=== PATIENT | male | born 1970 | race Caucasian/White ===

== ENCOUNTER 2024-02-24 12:32 | Inpatient (IN) ==
--- NOTE | 2024-02-24 12:55 | Emergency Department Note ---
History of Present Illness General Chief complaint: Kidney Stone Stated complaint: KIDNEY STONE WON'T PASS PAIN Time Seen by Provider: 02/24/24 12:39 History of Present Illness This is a 54-year-old male that presents to the emergency department via private vehicle with complaints of "right lower quadrant abdominal pain". The patient notes that he was seen this past Wednesday at [facility] and underwent a CT scan and was diagnosed with a 7 mm distal ureteral stone on the right with mild hydronephrosis. He does have a record with him which confirms this diagnosis. The patient notes that he is scheduled to see urology but that is not until Wednesday. The patient denies any dysuria. He denies any fevers or chills but notes that he has been feeling unwell with headache over the past day. The patient otherwise notes he is healthy. He has had kidney stones previously and notes that he has passed/had 3 kidney stones in the past 3 years. He does not follow with urology. No other surgical history. No known drug allergies. He has been taking the Toradol as prescribed as well as tamsulosin without improvement today. He does note that over the past few days following his initial visit at [facility] pain was better but significantly returned in severity. He did take oxycodone as well with some relief but notes today the pain continues. Home Medications Medication Instructions Recorded Confirmed Type ketorolac 10 mg tablet 10 mg PO Q6H PRN Pain 02/24/24 02/24/24 History tamsulosin 0.4 mg capsule 0.4 mg PO DAILY 02/24/24 02/24/24 History Allergies Allergy/AdvReac Type Severity Reaction Status Date / Time No Known Allergies Allergy Unverified 02/24/24 15:44 Past Med/Surg History Problem List (Updated 02/24/24 @ 18:09 by Lb Rosado PA-C) ROLANDO (acute kidney injury) (Acute) Hydronephrosis, right (Acute) Right distal ureteral calculus (Acute) Social History Smoking Status: Light tobacco smoker Tobacco Type: Smokeless Tobacco (Dip or Chew) Feels Safe at Home: Yes Review of Systems A total of 10 systems reviewed and were otherwise negative Physical Exam Vital Signs Vital Signs - 24 hr 02/24/24 12:33 02/24/24 12:35 02/24/24 12:54 Temperature 36.8 C Temperature Source Temporal Artery Scan Pulse Rate 81 Pulse Rate [Apical] Pulse Rhythm Regular Pulse Strength Normal Respiratory Rate 20 Respiratory Effort / Characteristics Non-Labored Spontaneous Respiratory Depth Normal Respiratory Pattern Blood Pressure [Right Arm] 136/91 Blood Pressure Mean [Right Arm] 106 Pulse Oximetry 98 100 Oxygen Delivery Method Room Air Room Air Sepsis Recent Fever Within 48 Hours No Sepsis New/Unexplained Change in Mental Status N/A Sepsis Action Taken by Nursing No Action Required 02/24/24 15:14 02/24/24 16:03 02/24/24 17:10 Temperature Temperature Source Pulse Rate Pulse Rate [Apical] 77 63 80 Pulse Rhythm Pulse Strength Respiratory Rate 16 16 19 Respiratory Effort / Characteristics Non-Labored Spontaneous Non-Labored Spontaneous Non-Labored Spontaneous Respiratory Depth Normal Normal Normal Respiratory Pattern Regular Blood Pressure [Right Arm] 135/76 139/73 131/76 Blood Pressure Mean [Right Arm] 95 95 94 Pulse Oximetry 97 98 95 Oxygen Delivery Method Room Air Room Air Room Air Sepsis Recent Fever Within 48 Hours Sepsis New/Unexplained Change in Mental Status Sepsis Action Taken by Nursing VITAL SIGNS - Vital signs and nursing notes were reviewed. Stable and afebrile. GENERAL - 54-year-old male appearing his stated age who is in no acute distress but appears to be in pain, mildly diaphoretic. Communicates well with provider and answers questions appropriately. SKIN - Without rashes. HEAD - NC/AT. EYES - PERRL with EOMI bilaterally. Sclera anicteric. NOSE - Midline and without cyanosis. No epistaxis or purulent drainage noted. MOUTH/OROPHARYNX - Without perioral cyanosis. NECK - Neck with FROM. No nuchal rigidity. LUNGS - CTA CARDIAC - RRR ABDOMEN - Abdominal contour normal without pulsations or visible masses. BS normoactive all four quadrants. No tenderness, palpable masses, hepatosplenomegaly, or ascites noted. EXTREMITIES - No clubbing or peripheral cyanosis. +5/5 strength noted in UE/LE bilaterally. NEUROLOGIC - Cranial nerves grossly intact. PSYCH -alert, oriented and pleasant on exam Course Administered Medications Discontinued Medications Hydromorphone HCl (Hydromorphone Inj 0.5 Mg/0.5 Ml Syr) 0.5 mg IV NOW STA Stop: 02/24/24 12:55 Last Admin: 02/24/24 13:12 Dose: 0.5 mg Documented By: MICHELLE Hydromorphone HCl (Hydromorphone Inj 0.5 Mg/0.5 Ml Syr) 0.25 mg IV NOW STA Stop: 02/24/24 15:19 Last Admin: 02/24/24 15:38 Dose: 0.25 mg Documented By: NOBLE Sodium Chloride (Nss) 1,000 mls @ 999 mls/hr IV .Q1H1M RADHA Stop: 02/24/24 14:00 Last Infusion: 02/24/24 14:17 Dose: Infused Documented By: Admin: 02/24/24 13:13 Dose: 999 mls/hr Documented By: MICHELLE Ondansetron HCl (Ondansetron Inj 2 Mg/Ml 2 Ml Vial) 4 mg IV NOW STA Stop: 02/24/24 12:55 Last Admin: 02/24/24 13:12 Dose: 4 mg Documented By: MICHELLE Medical Decision Making Laboratory Data 02/24/24 13:07 02/24/24 13:07 Lab Results 02/24/24 Range/Units 13:07 WBC 8.18 (4.8-10.8) K/ul RBC 4.58 L (4.70-6.10) M/uL Hgb 14.6 (14.0-18.0) g/dl Hct 42.8 (42.0-52.0) % MCV 93.4 (80.0-100.0) fL MCH 31.9 (25.0-34.0) pg MCHC 34.1 (32.0-36.0) g/dL RDW Std Deviation 43.6 (36.4-46.3) fL RDW Coeff of Brent 12.8 (11.5-14.5) % Plt Count 162 (130-400) K/uL MPV 10.8 (9.4-12.4) fL Immature Gran % (Auto) 0.4 % Neut % (Auto) 77.7 % Lymph % (Auto) 12.2 % [place] % (Auto) 8.3 % Eos % (Auto) 1.0 % Baso % (Auto) 0.4 % Neut # (Auto) 6.36 (1.40-6.50) K/uL Lymph # (Auto) 1.00 L (1.20-3.40) K/uL [place] # (Auto) 0.68 H (0.11-0.59) K/uL Eos # (Auto) 0.08 (0.00-0.50) K/uL Baso # (Auto) 0.03 (0.00-0.20) K/uL Immature Gran # (Auto) 0.03 (0.01-0.20) K/uL Sodium 137 (136-145) mmol/L Potassium 4.3 (3.5-5.1) mmol/L Chloride 105 (98-107) mmol/L Carbon Dioxide 27 (21-32) mmol/L Anion Gap 5 (3-11) BUN 20 (6-23) mg/dl Creatinine 1.65 H (0.6-1.4) mg/dl Est Cr Clr Drug Dosing 75.6 ml/min Est GFR ( Amer) 54.5 ml/min Est GFR (Non-Af Amer) 47.0 ml/min BUN/Creatinine Ratio 12.1 (10-20) Glucose 105 H (70-99(Fasting)) mg/dl Calcium 10.0 (8.6-10.3) mg/dl Total Bilirubin 1.0 (0.2-1.0) mg/dl AST 24 (13-39) U/L ALT 32 (7-52) U/L Alkaline Phosphatase 64 (34-104) U/L Total Protein 6.8 (6.0-8.3) gm/dl Albumin 4.0 (3.4-5.0) gm/dl Globulin 2.8 (2.5-4.0) gm/dl Albumin/Globulin Ratio 1.4 (0.9-2) Urine Color Yellow Urine Appearance Turbid A (Clear) Urine pH 8.5 H (4.5-7.5) Ur Specific [place] 1.021 (1.000-1.030) Urine Protein Negative (Negative) Urine Glucose (UA) Negative (Negative) Urine Ketones Trace H (Negative) Urine Blood Negative (Negative) Urine Nitrite Negative (Negative) Urine Bilirubin Negative (Negative) Urine Urobilinogen Negative (Negative) Ur Leukocyte Esterase Negative (Negative) Urine WBC (Auto) 0-5 (0-5) /hpf Urine RBC (Auto) 0-2 (0-2) /hpf U Hyaline Cast (Auto) 0-2 (0-2) /lpf U Epithel Cells (Auto) 0-2 (0-2) /hpf Urine Bacteria (Auto) None Seen (None Seen) Imaging Data Radiologist's Impression: KUB X-Ray 02/24/24 12:56 XR KUB/Abdomen 1 view CLINICAL HISTORY: R flank pain, known 7mm distal ureteral stone TECHNIQUE: 1 view of the abdomen was obtained. Comparison: Comparison is made to renal ultrasound 02/24/2024 FINDINGS: Calcific densities are in the right hemipelvis. The osseous structures are grossly unremarkable. The bowel gas pattern is nonobstructive. A moderate amount of stool is noted within the large bowel. IMPRESSION: Calcific densities in the right hemipelvis may possibly represent ureteral stones. CT abdomen pelvis is a more sensitive modality. ACT 112: Negative or not required by law. Electronically signed by: Flip Vaz M.D. 02/24/2024 2:34 PM Renal Ultrasound 02/24/24 12:56 RENAL ULTRASOUND CLINICAL HISTORY: R flank pain, known 7mm distal ureteral stone COMPARISON STUDY: None available at time of interpretation. TECHNIQUE: Sonography of the kidneys and the urinary bladder was performed. FINDINGS: The right kidney measures 14.7 cm in maximal dimension and the left measures 14.1 cm. There is mild right hydronephrosis. There is no left hydronephrosis. A 5 mm echogenic focus within the lower pole of the right kidney favors a right renal calculus. There are no left renal calculi. The left ureteral jet was visualized. The right ureteral jet was not visualized. No ureteral calculi are identified. IMPRESSION: 1. Mild right hydronephrosis. No ureteral calculus identified although these are often occult by sonography. 2. Right nephrolithiasis. ACT 112: Negative or not required by law. Electronically signed by: Clint Vazquez M.D. 02/24/2024 2:07 PM [facility] Narrative Patient was seen and evaluated as above in room C05. Review was performed of triage nursing notes and vital signs. A thorough history and physical examination was performed. I was able to obtain records from [facility] where the patient was seen in the recent past. I did review the laboratory findings as well as imaging report. A CT scan was performed of the abdomen pelvis without contrast and revealed "7 mm stone distally in the right ureter causing mild right hydronephrosis". A copy of this was placed on the patient's chart here for continuity purposes. Options of care were discussed with the patient. IV access was established. Labs were drawn. A KUB and renal ultrasound were performed. I reviewed the imaging. Mild hydronephrosis on the right noted. KUB revealed some calcifications. Patient was medicated with IV analgesia, IV antiemetics, as well as IV fluids. Labs reveal no leukocytosis or concerning anemia. Mild ROLANDO with creatinine 1.65. Hyperglycemia 105. Urinalysis does not suggest infection. I did discuss this with the urology service that came to evaluate the patient. Plan at this time is medical admission and likely procedure via urology tomorrow. Patient amenable to this plan. Please refer to further documentation regarding his stay. In the evaluation and treatment of this patient the following differential diagnoses were entertained: UTI, pyelonephritis, diverticulitis, kidney stone, among others Impression & Plan Right distal ureteral calculus, Hydronephrosis, right, ROLANDO (acute kidney injury) Discharge Plan Visit Data Chief Complaint: Kidney Stone Stated Complaint: KIDNEY STONE WON'T PASS PAIN ED Provider: Ming Nuno ED Midlevel Provider: Lb Rosado Discharge Problem: Right distal ureteral calculus, Hydronephrosis, right, ROLANDO (acute kidney injury) Patient Disposition: Admitted As Inpatient Condition: Good Forms Stand Alone Forms: [facility], Important Visit Information Prescriptions Prescriptions: No Action ketorolac 10 mg tablet 10 mg PO Q6H PRN (Reason: Pain) tamsulosin 0.4 mg capsule 0.4 mg PO DAILY Referrals Referrals: PCP,NO [Physician] -
[2024-02-24] MEDS: HYDROmorphone INJ 0.5 MG/0.5 ML SYR IV STA ×2 (13:12→15:38)
[2024-02-24] MEDS: ONDANSETRON INJ 2 MG/ML 2 ML VIAL IV STA (13:12)
[2024-02-24] MEDS: SODIUM CHLORIDE 0.9% 1,000 ML IV SCH (13:13)
[2024-02-24 13:23] LABS: Appearance Urine Turbid (Clear); Bacteria Urine Automated None Seen (None Seen); Basophils # (auto) 0.03 K/uL (0.00-0.20); Basophils % (auto) 0.4 %; Bilirubin Urine Negative (Negative); Blood Urine Negative (Negative); Cast Urine Automated 0-2 /lpf (0-2); Color Urine Yellow; Eosinophils # (auto) 0.08 K/uL (0.00-0.50); Epithelial Cell Urine Auto 0-2 /hpf (0-2); Glucose Urine UA Negative (Negative); Hematocrit (blood only) 42.8 % (42.0-52.0); Hemoglobin 14.6 g/dl (14.0-18.0); Immature Granulocytes # (auto) 0.03 K/uL (0.01-0.20); Immature Granulocytes % (auto) 0.4 %; Ketones Urine Trace (Negative); Leukocyte Esterase Urine Negative (Negative); Lymphocytes % (auto) 12.2 %; Mean Corpuscular Hemoglobin 31.9 pg (25.0-34.0); Mean Corpuscular Hgb Conc 34.1 g/dL (32.0-36.0); Mean Corpuscular Volume 93.4 fL (80.0-100.0); Mean Platelet Volume 10.8 fL (9.4-12.4); Monocytes # (auto) 0.68 K/uL (0.11-0.59); Monocytes % (auto) 8.3 %; Neutrophils # (auto) 6.36 K/uL (1.40-6.50); Neutrophils % (auto) 77.7 %; Nitrite Urine Negative (Negative); Platelet Count 162 K/uL (130-400); Protein Urine Negative (Negative); RBC Urine Automated 0-2 /hpf (0-2); RDW Coefficient of Variation 12.8 % (11.5-14.5); RDW Standard Deviation 43.6 fL (36.4-46.3); Red Blood Count 4.58 M/uL (4.70-6.10); Specific Gravity Urine 1.021 (1.000-1.030); Urobilinogen Urine Negative (Negative); WBC Urine Automated 0-5 /hpf (0-5); White Blood Count 8.18 K/ul (4.8-10.8); pH Urine 8.5 (4.5-7.5)
[2024-02-24 13:45] LABS: Albumin Globulin Ratio 1.4 (0.9-2); BUN Creatinine Ratio 12.1 (10-20); Creatinine Clr Calc Pharmacy 75.6 ml/min; Est GFR (African American) 54.5 ml/min; Globulin 2.8 gm/dl (2.5-4.0); Potassium 4.3 mmol/L (3.5-5.1); Total Protein 6.8 gm/dl (6.0-8.3)
--- NOTE | 2024-02-24 14:09 | Ultrasound Report ---
RENAL ULTRASOUND CLINICAL HISTORY: R flank pain, known 7mm distal ureteral stone COMPARISON STUDY: None available at time of interpretation. TECHNIQUE: Sonography of the kidneys and the urinary bladder was performed. FINDINGS: The right kidney measures 14.7 cm in maximal dimension and the left measures 14.1 cm. There is mild right hydronephrosis. There is no left hydronephrosis. A 5 mm echogenic focus within the low er pole of the right kidney favors a right renal calculus. There are no left renal calculi. The left ureteral jet was visualized. The right ureteral jet was not visualized. No ureteral calculi are ident ified. IMPRESSION: 1. Mild right hydronephrosis. No ureteral calculus identified although these are often occult by sono graphy. 2. Right nephrolithiasis. ACT 112: Negative or not required by law. Electronically signed by: Clint Vazquez M.D. 02/24/2024 2:07 PM
--- NOTE | 2024-02-24 14:36 | XRay Report ---
XR KUB/Abdomen 1 view CLINICAL HISTORY: R flank pain, known 7mm distal ureteral stone TECHNIQUE: 1 view of the abdomen was obtained. Comparison: Comparison is made to renal ultrasound 02/24/2024 FINDINGS: Calcific densities are in the right hemipelvis. The osseous structures are grossly unremarkable. The bowel gas pattern is nonobstructive. A moderate amount of stool is noted within the large bowel. IMPRESSION: Calcific densities in the right hemipelvis may possibly represent ureteral stones. CT abdomen pelvis is a more sensitive modality. ACT 112: Negative or not required by law. Electronically signed by: Flip Vaz M.D. 02/24/2024 2:34 PM
--- NOTE | 2024-02-24 15:20 | Urology Consultation ---
Date of Consultation February 24, 2024 Assessment & Plan (1) Right distal ureteral calculus: (2) Hydronephrosis, right: 54-year-old male recently diagnosed with an obstructing 7 mm right distal ureteral calculus at [facility] ED who presented to the emergency department today due to worsening right abdominal pain. He is currently afebrile, hemodynamically stable Labs reviewedcreatinine 1.65, no leukocytosis Urinalysis was not suspicious for infection KUB shows a right distal ureteral stone Renal ultrasound shows mild right hydronephrosis ED provider is requesting CT images to be pushed from [facility] Patient will be admitted to the hospital medicine service for pain management No acute surgical intervention planned today We discussed options for stone management including trial of passage versus ureteroscopy, laser lithotripsy and stent placement Will make him NPO at midnight for possible surgical intervention tomorrow Recommend continue Tamsulosin, prn anti-emetics, and pain control Strain all urine will follow, please contact our service with any additional questions or concerns History of Present Illness History of Present Illness This is a 54-year-old male with past medical history of nephrolithiasis who was recently evaluated at [facility] ED on 02/19 for right abdominal and flank pain. He underwent CT imaging and was diagnosed with a 7 mm distal right ureteral calculus with mild hydronephrosis. He was discharged from ED with pain medication and Tamsulosin. He was doing relatively well until today when pain worsened prompting him to come to [facility] ED. He is pending urology follow-up. On arrival to ED, he was afebrile and hemodynamically stable. Lab work notable for creatinine of 1.65, no leukocytosis (8.18), Hgb 14.6. Urinalysis showed trace ketones, otherwise unremarkable. KUB showed a right distal ureteral stone measuring approximately 7 mm. Renal ultrasound showed mild right hydronephrosis, no ureteral stone visualized by sonography; right nephrolithiasis. Patient seen and examined in the emergency department. Family at bedside. He reports ongoing right abdominal pain. Reports intermittent nausea. He is voiding spontaneously without difficulty. Notes slower stream a few days ago, but has been better for the past 2 days. No dysuria. He has noted occasional hematuria since passing stone. Denies fever or chills. He has been drinking fluids throughout the day today. Reports prior history of kidney stones with suspected spontaneous passage. No prior surgical intervention for stones. No family history of stones. Allergies Allergy/AdvReac Type Severity Reaction Status Date / Time No Known Allergies Allergy Unverified 02/24/24 15:44 Home Medications Medication Instructions Recorded Confirmed Type ketorolac 10 mg tablet 10 mg PO Q6H PRN Pain 02/24/24 02/24/24 History tamsulosin 0.4 mg capsule 0.4 mg PO DAILY 02/24/24 02/24/24 History Patient History Social History Smoking Status: Light tobacco smoker Tobacco Type: Smokeless Tobacco (Dip or Chew) Feels Safe at Home: Yes Review of Systems Review of Systems: All systems reviewed & are unremarkable except as noted in HPI & below Physical Exam Constitutional: well developed and well nourished; no acute distress Respiratory: normal respiratory effort; no respiratory distress and no labored breathing Gastrointestinal (Abdomen): Inspection/Auscultation: abdomen normal to inspection Musculoskeletal: Head/Neck/Chest: normocephalic Neurologic: moves all extremities and awake Psychiatric: Orientation: alert and oriented x 3 Genitourinary: no CVA tenderness Results & Data Vital Signs (Past 12 Hours) Vital Signs Temp Pulse Resp BP Pulse Ox O2 Del Method 02/24/24 12:54 100 Room Air 02/24/24 12:35 36.8 C 81 20 98 Room Air 02/24/24 12:33 136/91 PG Care Time/CCT Total # of Minutes Spent Total Time Spent with Patient: Total time spent is greater than 50% in coordination of care (as documented) at patient's floor/unit and/or counseling patient: Coding Level of Care Code 52950 IN/OBS CONSULT LVL 4,60M Diagnoses Right distal ureteral calculus N20.1 Hydronephrosis, right N13.30
--- NOTE | 2024-02-24 15:51 | History & Physical Report ---
Date of Service February 24, 2024 History of Present Illness Chief Complaint: Kidney stone Primary Care Provider: Belkis Dowell PA-C Andrew is a 54-year-old male with unknown PMH. He presented on 02/23 with a repo rted 7 mm kidney stone and intractable pain, nausea, and vomiting. He was seen on Monday 02/19 and was given medications, but pain has since worsened. ED course: ROS: Patient endorses Patient denies Allergies Allergy/AdvReac Type Severity Reaction Status Date / Time No Known Allergies Allergy Unverified 02/24/24 15:44 Home Medications Medication Instructions Recorded Confirmed Type ketorolac 10 mg tablet 10 mg PO Q6H PRN Pain 02/24/24 02/24/24 History tamsulosin 0.4 mg capsule 0.4 mg PO DAILY 02/24/24 02/24/24 History Past Med/Surg History Problem List Hydronephrosis, right Right distal ureteral calculus Social History Smoking Status: Light tobacco smoker Tobacco Type: Smokeless Tobacco (Dip or Chew) Feels Safe at Home: Yes Review of Systems Review of Systems: See HPI above Physical Exam Physical Exam: General: no acute distress; non-toxic appearing; well-nourished; cooperative HEENT: normocephalic, atraumatic; no scleral icterus; PERRLA w/ EOMs intact; moist mucus membrane; vision and hearing grossly intact Neck: supple; no lymphadenopathy; trachea midline Skin: warm, dry without signs of tenting; no cyanosis; no rashes, bruising, lesions, or erythema noted CV: chest wall NTP; RRR; S1/S2 normal; no murmurs/rubs/gallops; pulses intact and symmetric at radial, DP, and PT Lungs: no acute respiratory distress; symmetrical chest wall expansion; clear breath sounds across all lung [place] w/o adventitious sounds; no wheezing ABD: Soft, NTP; BS present; no rebound/guarding; no distention MSK: no tics or fasciculations; no edema noted in the LEs b/l, nonerythematous Neuro: A&Ox3; normal mood and affect; fluent speech; no focal deficits; sensation grossly intact in the LEs b/l Results & Data Results & Data Vital Signs (Past 12 Hours) Vital Signs Temp Pulse Pulse Resp BP Pulse Ox O2 Del Method 02/24/24 15:14 77 16 135/76 97 Room Air 02/24/24 12:54 100 Room Air 02/24/24 12:35 36.8 C 81 20 98 Room Air 02/24/24 12:33 136/91 Laboratory Results Abnormal lab results 02/24/24 Range/Units 13:07 RBC 4.58 L (4.70-6.10) M/uL Lymph # (Auto) 1.00 L (1.20-3.40) K/uL [place] # (Auto) 0.68 H (0.11-0.59) K/uL Creatinine 1.65 H (0.6-1.4) mg/dl Glucose 105 H (70-99(Fasting)) mg/dl Urine Appearance Turbid A (Clear) Urine pH 8.5 H (4.5-7.5) Urine Ketones Trace H (Negative) Diagnostic Findings KUB X-Ray 02/24/24 12:56 XR KUB/Abdomen 1 view CLINICAL HISTORY: R flank pain, known 7mm distal ureteral stone TECHNIQUE: 1 view of the abdomen was obtained. Comparison: Comparison is made to renal ultrasound 02/24/2024 FINDINGS: Calcific densities are in the right hemipelvis. The osseous structures are grossly unremarkable. The bowel gas pattern is nonobstructive. A moderate amount of stool is noted within the large bowel. IMPRESSION: Calcific densities in the right hemipelvis may possibly represent ureteral stones. CT abdomen pelvis is a more sensitive modality. ACT 112: Negative or not required by law. Electronically signed by: Flip Vaz M.D. 02/24/2024 2:34 PM Renal Ultrasound 02/24/24 12:56 RENAL ULTRASOUND CLINICAL HISTORY: R flank pain, known 7mm distal ureteral stone COMPARISON STUDY: None available at time of interpretation. TECHNIQUE: Sonography of the kidneys and the urinary bladder was performed. FINDINGS: The right kidney measures 14.7 cm in maximal dimension and the left measures 14.1 cm. There is mild right hydronephrosis. There is no left hydronephrosis. A 5 mm echogenic focus within the lower pole of the right kidney favors a right renal calculus. There are no left renal calculi. The left ureteral jet was visualized. The right ureteral jet was not visualized. No ureteral calculi are identified. IMPRESSION: 1. Mild right hydronephrosis. No ureteral calculus identified although these are often occult by sonography. 2. Right nephrolithiasis. ACT 112: Negative or not required by law. Electronically signed by: Clint Vazquez M.D. 02/24/2024 2:07 PM ECG Additional Comments: ECG revealed Code Status & VTE Plan VTE Prophylaxis Plan VTE Prophylaxis will be ordered: Yes PG Care Time/CCT Total # of Minutes Spent Total Time Spent with Patient: Total time spent is greater than 50% in coordination of care (as documented) at patient's floor/unit and/or counseling patient: Coding
--- NOTE | 2024-02-24 17:09 | History & Physical Report ---
Date of Service February 24, 2024 Assessment & Plan (1) Hydronephrosis, right: Plan: Obstructing right distal ureteral calculus, hydronephrosis with associated ROLANDO No baseline creatinine available, reportedly normal Creatinine 1.65 on admission. No associated volume overload or hyperkalemia Renal ultrasound shows mild right hydroureteronephrosis, patient with known 7 m distal radial calculus previously demonstrated [facility] ER this week Urology consulted. Anticipate operative intervention 02/24 N.p.o. at midnight Continue Tylenol, Flomax, tamsulosin. Toradol deferred due to ROLANDO No signs of UTI/infection at time of admission. UA is with ketones with poor p.o. intake, otherwise bland (2) ROLANDO (acute kidney injury): Plan: Creatinine 1.65 on admission. No associated volume overload or hyperkalemia Normal creatinine reportedly normal, not available on file for review IV FM as noted Trend daily Trickle treatment of obstructive ROLANDO anticipated 02/24 Plan DVT prophylaxis: Low risk, SCDs Diet: Regular until midnight, n.p.o. after midnight Disposition: Medical surgical CODE STATUS: Full code History of Present Illness Primary Care Provider: Belkis Dowell PA-C Andrew is a 54-year-old male with no prior past medical history who presents for right distal ureteral calculus with associated hydronephrosis. Was seen at [facility] previously and discharged, presented back to the ER [place] due to persistent pain. Creatinine elevated, no leukocytosis, no associated UTI on ER assessment. Urology was consulted, patient anticipated for surgical intervention 02/24. Denies past medical history of problems other than kidney stones and well-controlled anxiety not currently on medications. Urology was consulted for management and admission, recommended for operative intervention 02/24 with medical admission overnight. Seen at the bedside. Reports that he has had pain for about a week, was seen at OSH on Wednesday and was told he is a 7 mm stone. Was discharged home on Flomax but pain is continued to worsen, presented to the ER for continued pain. No fever, chills, sweats. No pain when peeing. Pain is mostly in his abdomen and flank on the right side. This is intermittent in waves, up to an 8/10 with spasm and then "okay "at rest. Pain adequately controlled at time of hospitalist assessment. Endorses a history of anxiety for which he was previously on medications but currently does well without these and has been on no medications in the previous 6 weeks. No SI/HI. Denies any other prescription medications. Denies any other history of medical problems. Denies chest pain/chest pressure, denies anginal symptoms and is generally active walking around. No history of DM/insulin use. No history of strokes. Uses chew tobacco 1 can last a few days. No regular alcohol use. Some medical marijuana use for anxiety intermittently, none recently. Full code. No medication allergies. Allergies Allergy/AdvReac Type Severity Reaction Status Date / Time No Known Allergies Allergy Unverified 02/24/24 15:44 Home Medications Medication Instructions Recorded Confirmed Type ketorolac 10 mg tablet 10 mg PO Q6H PRN Pain 02/24/24 02/24/24 History tamsulosin 0.4 mg capsule 0.4 mg PO DAILY 02/24/24 02/24/24 History Past Med/Surg History Problem List (Updated 02/24/24 @ 17:05 by Pablo Singh MD) ROLANDO (acute kidney injury) Hydronephrosis, right Right distal ureteral calculus Social History Smoking Status: Light tobacco smoker Tobacco Type: Smokeless Tobacco (Dip or Chew) Feels Safe at Home: Yes Physical Exam Physical Exam: General: A&Ox3. NAD. Cooperative. HEENT: Atraumatic, normocephalic. Vision and hearing grossly intact Pulm: CTAB A&P. -wheezes, -rales, -rhonchi. Symmetrical chest rise. No increased work of breathing. No respiratory distress. Cardiac: RRR, -mrg. Radial pulses intact and symmetrical. Abdominal: Mild right-sided tenderness on admission, pain greatly improved from prior. No rebound/guarding. Abdomen is nonacute Extremities: Warm and dry Results & Data Results & Data Vital Signs (Past 12 Hours) Vital Signs Temp Pulse Pulse Resp BP Pulse Ox O2 Del Method 02/24/24 16:03 63 16 139/73 98 Room Air 02/24/24 15:14 77 16 135/76 97 Room Air 02/24/24 12:54 100 Room Air 02/24/24 12:35 36.8 C 81 20 98 Room Air 02/24/24 12:33 136/91 PG Care Time/CCT Total # of Minutes Spent Total Time Spent with Patient: Total time spent is greater than 50% in coordination of care (as documented) at patient's floor/unit and/or counseling patient: Coding Level of Care Code 22944 INT INP/OBS CARE 2/55MIN Diagnoses Hydronephrosis, right N13.30 ROLANDO (acute kidney injury) N17.9
[2024-02-24] MEDS: HYDROmorphone INJ 0.5 MG/0.5 ML SYR ONE (18:44)
[2024-02-24] MEDS: HYDROmorphone INJ 0.5 MG/0.5 ML SYR IV PRN (21:44)
[2024-02-24] MEDS: LACTATED RINGER'S 1,000 ML IV SCH (23:24)
[2024-02-25] MEDS: TAMSULOSIN HCL 0.4 MG CAP PO SCH (14:54)
[2024-02-25] MEDS: HYDROmorphone INJ 0.5 MG/0.5 ML SYR IV PRN (15:35)
--- NOTE | 2024-02-25 15:38 | Hospitalist Progress Note ---
Date of Service February 25, 2024 Assessment & Plan (1) Hydronephrosis, right: Plan: Obstructing right distal ureteral calculus, hydronephrosis with associated ROLANDO - UA without signs of infection No baseline creatinine available, reportedly normal Renal ultrasound shows mild right hydroureteronephrosis, patient with known 7 m distal radial calculus previously demonstrated [facility] ER this week Urology consulted. - unable to have intervention 02/24 d/t downtime - patient has started passing sediment - check KUB, will keep NPO at midnight for possible intervention - Continue flomax Pain control: dilaudid and tylenol (2) ROLANDO (acute kidney injury): Plan: Creatinine 1.65 on admission. No baseline to review. No associated volume overload or hyperkalemia Creatinine now 1.33 ROLANDO resolved Plan DVT prophylaxis: Low risk, SCDs Dispo: continued inpatient stay, NPO at midnight for possible intervention discussed case with Dr. Stoddard, urology Admission and Anticipated Discharge Date Admission Date: February 24, 2024 Supervising Physician Co-Signing Physician Notes Attending Attestation - Chart reviewed, care plan d/w BARTOLO Varma. I agree w/ the naylor components of her documentation. Appreciate urology input/assistance. Gabo Ramirez MD Subjective Patient seen this morning during the [facility] downtime. Aware he could not have his procedure today because of this. Will keep for pain control and hopeful procedure tomorrow Pain at this time is mainly right abdominal, denies back pain. Review of Systems Review of Systems: All systems reviewed & are unremarkable except as noted in Subjective Physical Exam Physical Exam: General: NAD, VS as above Resp: normal respiratory effort, lungs clear to auscultation CV: RRR, no murmur, Abd: normal bowel sounds, tenderness to RLQ Back: negative CVA tenderness Extremities: Moves all extremities, no edema Neuro: A&O x3, Skin: intact, no lesions noted Results & Data Results & Data Vital Signs (Past 12 Hours) CBC and chemistry reviewed PG Care Time/CCT Total # of Minutes Spent Total Time Spent with Patient: Total time spent is greater than 50% in coordination of care (as documented) at patient's floor/unit and/or counseling patient: Coding Level of Care Code 57171 SUB INP/OBS CARE 3/50MIN Diagnoses Hydronephrosis, right N13.30 ROLANDO (acute kidney injury) N17.9
--- NOTE | 2024-02-25 16:45 | XRay Report ---
XR KUB/Abdomen 1 view CLINICAL HISTORY: Stone TECHNIQUE: 1 view of the abdomen was obtained. Comparison: Comparison is made to abdomen radiographs 02/24/2024 FINDINGS: Right ureteral stone is seen. The osseous structures are grossly unremarkable. The bowel gas pattern is nonobstructive. A moderate amount of stool is noted within the large bowel. IMPRESSION: Right ureteral stone is unchanged from prior exam. ACT 112: Negative or not required by law. Electronically signed by: Flip Vaz M.D. 02/25/2024 4:42 PM
[2024-02-25 17:02] LABS: BUN Creatinine Ratio 13.5 (10-20); Creatinine Clr Calc Pharmacy 90.9 ml/min; Est GFR (African American) 70.7 ml/min; Potassium 4.5 mmol/L (3.5-5.1)
[2024-02-25] MEDS: POLYETHYLENE (MIRALAX) 17 GM PACK PO PRN (17:52)
[2024-02-25] MEDS: oxyCODONE HCL IR 5 MG TAB (IMMEDIATE RELEASE) PO PRN (19:36)
[2024-02-25 20:20] LABS: Basophils # (auto) 0.02 K/uL (0.00-0.20); Basophils % (auto) 0.4 %; Eosinophils # (auto) 0.13 K/uL (0.00-0.50); Eosinophils % (auto) 2.3 %; Hematocrit (blood only) 42.1 % (42.0-52.0); Hemoglobin 14.1 g/dl (14.0-18.0); Immature Granulocytes # (auto) 0.04 K/uL (0.01-0.20); Immature Granulocytes % (auto) 0.7 %; Lymphocytes # (auto) 1.15 K/uL (1.20-3.40); Lymphocytes % (auto) 20.8 %; Mean Corpuscular Hemoglobin 31.6 pg (25.0-34.0); Mean Corpuscular Hgb Conc 33.5 g/dL (32.0-36.0); Mean Corpuscular Volume 94.4 fL (80.0-100.0); Mean Platelet Volume 10.5 fL (9.4-12.4); Monocytes # (auto) 0.57 K/uL (0.11-0.59); Monocytes % (auto) 10.3 %; Neutrophils # (auto) 3.63 K/uL (1.40-6.50); Neutrophils % (auto) 65.5 %; Platelet Count 134 K/uL (130-400); RDW Coefficient of Variation 12.9 % (11.5-14.5); RDW Standard Deviation 44.7 fL (36.4-46.3); Red Blood Count 4.46 M/uL (4.70-6.10); White Blood Count 5.54 K/ul (4.8-10.8)
[2024-02-26] MEDS: HYDROCORTISONE 1% CRM 30 GM TUBE EXT PRN (01:43)
--- NOTE | 2024-02-26 06:48 | Urology Progress Note ---
Date of Service February 26, 2024 Assessment & Plan (1) Right distal ureteral calculus: Plan Patient with obstructing stone of the right UVJ. Stone did not appear to move on KUB imaging yesterday. Patient elected to monitor further. Was passing a small amount of debris but does not appear to have passed a stone. Patient's vitals are all stable. Oxygen saturation 96% on room air. Labs from today are pending. Creatinine from yesterday was 1.33. White count 5.54. Patient independently assessed, examined, interviewed, and evaluated. Agree with note as above. Patient's vitals and labs were all reviewed. Pertinent values in the HPI and plan section. Imaging was reviewed interpreted by myself. Agree with read. Vitals were reviewed. Discussed findings extensively with patient and family. Reviewed with consulting physicians/team. Patient's complicated medical and surgical history was reviewed and summarized above. Patient's surgical, medical, social, and family history were all reviewed with pertinent values as above. Discussed patient's current diagnosis as well as concerns and issues. Reviewed different options moving forward. Discussed potential risks and benefits as well as possible options and concerns. Reviewed potential surgical options and interventions. Discussed potential issues and concerns related to intervention. Risk and benefits were discussed extensively with patient and any available family. Discussed potential risks related to anesthesia. Discussed risks of bleeding infection and injury. Patient with obstructing stone of the right UVJ. KUB imaging from yesterday did not show considerable movement. Continue to has episodes of pain and discomfort. Risks and benefits discussed at length for procedure. These include bleeding, infection, injury to surrounding tissues or organs, and risks associated with anesthesia. Patient states understanding and agrees to proceed. Will sign consent and schedule. Plan for cystoscopy with possible right ureteroscopy and stone treatment Admission and Anticipated Discharge Date Admission Date: February 24, 2024 Subjective Patient admitted with stone and discomfort. Patient is afebrile. Has been undergoing maximum expulsion therapy with medications, IV medications, IV fluids, and oral intake. Patient has not had severe episodes of pain. Did pass some small amounts of debris but did not appear to pass stone. Had undergone KUB yesterday which did not show any considerable movement of the stone in the location of the UPJ. Has not developed severe vomiting or other issues. Has not experienced fever or chills. Is tolerating fluids. Has noticed some frequency and urgency. Has not had severe pain in the back and flank. Does have occasional burning and irritation. No severe episodes or major changes. Patient does not believe the passed a stone. Has not passed a large amount of blood or debris that may be the stone. Review of Systems Review of Systems: All systems reviewed & are unremarkable except as noted in HPI & below Physical Exam Physical Exam: General: Alert in no acute distress. HEENT: Normocephalic Atraumatic. Inspection normal. Cranial Nerves 2-12 Grossly intact. Normal inspection of face. Normal inspection of neck. Psychologic: Normal affect. Respiratory: Nonlabored. No use of accessory muscles. No tachypnea or dyspnea. Cardiovascular: No tachycardia Skin: [place] and Dry. No rashes or visible lesions. Extremities/Lymphatics: No edema Abdomen: Soft Non-distended. No rebound or guarding. Results & Data Vital Signs (Past 12 Hours) Vital Signs Temp Pulse Resp BP Pulse Ox O2 Del Method 02/25/24 19:50 36.5 C 84 18 134/93 96 Room Air PG Care Time/CCT Total # of Minutes Spent Total Time Spent with Patient: Total time spent is greater than 50% in coordination of care (as documented) at patient's floor/unit and/or counseling patient: Coding Level of Care Code 85393 SUB INP/OBS CARE 3/50MIN Diagnoses Right distal ureteral calculus N20.1
--- NOTE | 2024-02-26 06:57 | Anesthesiology Consultation ---
Date of Service February 26, 2024 History Surgery Operation Date: 02/26/24 08:20 Proposed Procedures p Cystoscopy, Right Stent Placement - Jeffery Stoddard, Height/Weight Height: 6 ft 2 in Weight: 124.058 kg Allergies Allergy/AdvReac Type Severity Reaction Status Date / Time No Known Allergies Allergy Unverified 02/24/24 15:44 Medications Home Medications Medication Instructions Recorded Confirmed Last Taken ketorolac 10 mg tablet 10 mg PO Q6H PRN Pain 02/24/24 02/24/24 02/24/24 08:00 tamsulosin 0.4 mg capsule 0.4 mg PO DAILY 02/24/24 02/24/24 02/24/24 08:00 Active Medications Generic Name Dose Route Start Last Admin Trade Name Freq PRN Reason Stop Dose Admin Hydrocortisone 1 appln 02/26/24 00:50 02/26/24 01:43 Hydrocortisone 1% Crm 30 Gm Tube EXT 03/27/24 00:49 1 appln Q24H PRN Administration Itching Hydromorphone HCl 0.5 mg 02/25/24 14:45 02/26/24 03:24 Hydromorphone Inj 0.5 Mg/0.5 Ml Syr IV 03/10/24 14:44 0.5 mg Q4H PRN Administration Pain Oxycodone HCl 5 mg 02/25/24 17:46 02/26/24 01:44 Oxycodone Hcl Ir 5 Mg Tab (Immediate Release) PO 03/10/24 17:45 5 mg Q6H PRN Administration Pain Polyethylene Glycol 17 gm 02/25/24 16:06 02/25/24 17:52 Polyethylene (Miralax) 17 Gm Pack PO 03/26/24 16:05 17 gm DAILY PRN Administration Constipation Tamsulosin HCl 0.4 mg 02/25/24 09:00 02/25/24 14:54 Tamsulosin Hcl 0.4 Mg Cap PO 03/26/24 08:59 Not Given DAILY RADHA NPO Date Last Intake of Fluids: 02/26/24 Time Last Intake of Fluids: 00:00 Date Last Intake of Solids: 02/26/24 Time Last Intake of Solids: 00:00 Past Medical History Medical History (Updated 02/26/24 @ 06:57 by Porfirio Barger MD) Hydronephrosis, right Social History Smoking Status: Light tobacco smoker Do You Dip or Chew Tobacco: Yes Hx Alcohol Use: No Physical Exam Vital Signs Last Vital Signs Temp 36.5 C 02/25/24 19:50 Pulse 84 02/25/24 19:50 Resp 18 02/25/24 19:50 BP 134/93 02/25/24 19:50 Pulse Ox 96 02/25/24 19:50 O2 Del Method Room Air 02/25/24 19:50 Testing Laboratory Results 02/25/24 Unknown 02/25/24 08:20 Urine Color Yellow 02/24/24 13:07 Urine Appearance Turbid (Clear) A 02/24/24 13:07 Urine pH 8.5 (4.5-7.5) H 02/24/24 13:07 Ur Specific [place] 1.021 (1.000-1.030) 02/24/24 13:07 Urine Protein Negative (Negative) 02/24/24 13:07 Urine Glucose (UA) Negative (Negative) 02/24/24 13:07 Urine Ketones Trace (Negative) H 02/24/24 13:07 Urine Nitrite Negative (Negative) 02/24/24 13:07 Ur Leukocyte Esterase Negative (Negative) 02/24/24 13:07 Urine WBC (Auto) 0-5 /hpf (0-5) 02/24/24 13:07 Urine RBC (Auto) 0-2 /hpf (0-2) 02/24/24 13:07 U Hyaline Cast (Auto) 0-2 /lpf (0-2) 02/24/24 13:07 U Epithel Cells (Auto) 0-2 /hpf (0-2) 02/24/24 13:07 Urine Bacteria (Auto) None Seen (None Seen) 02/24/24 13:07
[2024-02-26 07:53] LABS: BUN Creatinine Ratio 14.2 (10-20); Calcium 9.4 mg/dl (8.6-10.3); Creatinine Clr Calc Pharmacy 114.1 ml/min; Est GFR (African American) 93.1 ml/min; Est GFR (Non-African American) 80.3 ml/min; Potassium 4.1 mmol/L (3.5-5.1)
[2024-02-26] MEDS ORDERED: fentaNYL citrate PF 100 MCG/2 ML VIAL ONE (07:59)
[2024-02-26] MEDS ORDERED: MIDAZOLAM HCL 1 MG/ML 2ML VIAL ONE (07:59)
[2024-02-26] MEDS ORDERED: LIDOCAINE 2% 2 ML VIAL/AMP(20MG/ML) INFIL ONE (07:59)
[2024-02-26] MEDS ORDERED: ONDANSETRON INJ 2 MG/ML 2 ML VIAL ONE (07:59)
[2024-02-26] MEDS ORDERED: PROPOFOL IV EMULSION 10 MG/ML 20 ML VIAL IV ONE (07:59)
--- NOTE | 2024-02-26 08:27 | Anesthesiology Consultation ---
Date of Service February 26, 2024 Assessment & Plan (1) Encounter for pre-operative examination: Chart Review Chart Review: Acceptable Risk for Surgery History Surgery Operation Date: 02/26/24 08:20 Proposed Procedures p Cystoscopy, Right Stent Placement - Jeffery Stoddard DO Height/Weight Height: 6 ft 2 in Weight: 124.058 kg Allergies Allergy/AdvReac Type Severity Reaction Status Date / Time No Known Allergies Allergy Unverified 02/24/24 15:44 Medications Home Medications Medication Instructions Recorded Confirmed Last Taken ketorolac 10 mg tablet 10 mg PO Q6H PRN Pain 02/24/24 02/24/24 02/24/24 08:00 tamsulosin 0.4 mg capsule 0.4 mg PO DAILY 02/24/24 02/24/24 02/24/24 08:00 Active Medications Generic Name Dose Route Start Last Admin Trade Name Freq PRN Reason Stop Dose Admin Hydrocortisone 1 appln 02/26/24 00:50 02/26/24 01:43 Hydrocortisone 1% Crm 30 Gm Tube EXT 03/27/24 00:49 1 appln Q24H PRN Administration Itching Hydromorphone HCl 0.5 mg 02/25/24 14:45 02/26/24 03:24 Hydromorphone Inj 0.5 Mg/0.5 Ml Syr IV 03/10/24 14:44 0.5 mg Q4H PRN Administration Pain Oxycodone HCl 5 mg 02/25/24 17:46 02/26/24 01:44 Oxycodone Hcl Ir 5 Mg Tab (Immediate Release) PO 03/10/24 17:45 5 mg Q6H PRN Administration Pain Polyethylene Glycol 17 gm 02/25/24 16:06 02/25/24 17:52 Polyethylene (Miralax) 17 Gm Pack PO 03/26/24 16:05 17 gm DAILY PRN Administration Constipation Tamsulosin HCl 0.4 mg 02/25/24 09:00 02/26/24 07:58 Tamsulosin Hcl 0.4 Mg Cap PO 03/26/24 08:59 0.4 mg DAILY RADHA Administration NPO Date Last Intake of Fluids: 02/26/24 Time Last Intake of Fluids: 00:00 Date Last Intake of Solids: 02/26/24 Time Last Intake of Solids: 00:00 Past Medical History Medical History (Updated 02/26/24 @ 08:27 by Porfirio Barger MD) ROLANDO (acute kidney injury) Hydronephrosis, right Past Surgical History Surgical History (Updated 02/26/24 @ 08:27 by Porfirio Barger MD) Hx of colonoscopy No pertinent past surgical history Social History Smoking Status: Light tobacco smoker Do You Dip or Chew Tobacco: Yes Hx Alcohol Use: No Physical Exam Vital Signs Last Vital Signs Temp 36.6 C 02/26/24 07:12 Pulse 51 L 02/26/24 07:12 Resp 16 02/26/24 07:12 BP 105/70 02/26/24 07:12 Pulse Ox 92 02/26/24 07:12 O2 Del Method Room Air 02/26/24 07:12 Testing Laboratory Results 02/25/24 Unknown Urine Color Yellow 02/24/24 13:07 Urine Appearance Turbid (Clear) A 02/24/24 13:07 Urine pH 8.5 (4.5-7.5) H 02/24/24 13:07 Ur Specific [place] 1.021 (1.000-1.030) 02/24/24 13:07 Urine Protein Negative (Negative) 02/24/24 13:07 Urine Glucose (UA) Negative (Negative) 02/24/24 13:07 Urine Ketones Trace (Negative) H 02/24/24 13:07 Urine Nitrite Negative (Negative) 02/24/24 13:07 Ur Leukocyte Esterase Negative (Negative) 02/24/24 13:07 Urine WBC (Auto) 0-5 /hpf (0-5) 02/24/24 13:07 Urine RBC (Auto) 0-2 /hpf (0-2) 02/24/24 13:07 U Hyaline Cast (Auto) 0-2 /lpf (0-2) 02/24/24 13:07 U Epithel Cells (Auto) 0-2 /hpf (0-2) 02/24/24 13:07 Urine Bacteria (Auto) None Seen (None Seen) 02/24/24 13:07
[2024-02-26] MEDS ORDERED: fentaNYL citrate PF 100 MCG/2 ML VIAL IV PRN (08:30)
[2024-02-26] MEDS ORDERED: ATROPINE SULFATE 0.1 MG/ML 10ML SYR IV PRN (08:30)
[2024-02-26] MEDS: ceFAZolin 2000MG 2,000 MG/15 ML SYR IV ONE (08:35)
[2024-02-26 08:43] LABS: Hematocrit (blood only) 41.3 % (42.0-52.0); Hemoglobin 14.2 g/dl (14.0-18.0); Mean Corpuscular Hemoglobin 32.1 pg (25.0-34.0); Mean Corpuscular Hgb Conc 34.4 g/dL (32.0-36.0); Mean Corpuscular Volume 93.4 fL (80.0-100.0); Mean Platelet Volume 10.3 fL (9.4-12.4); Platelet Count 157 K/uL (130-400); RDW Coefficient of Variation 12.8 % (11.5-14.5); RDW Standard Deviation 43.7 fL (36.4-46.3); Red Blood Count 4.42 M/uL (4.70-6.10)
[2024-02-26] MEDS ORDERED: ceFAZolin 330 MG/ML 1 GM VIAL ONE (08:43)
[2024-02-26 08:50] LABS: Basophils # (auto) 0.03 K/uL (0.00-0.20); Basophils % (auto) 0.6 %; Eosinophils # (auto) 0.19 K/uL (0.00-0.50); Eosinophils % (auto) 3.5 %; Immature Granulocytes # (auto) 0.01 K/uL (0.01-0.20); Immature Granulocytes % (auto) 0.2 %; Lymphocytes % (auto) 31.5 %; Monocytes # (auto) 0.54 K/uL (0.11-0.59); Neutrophils # (auto) 2.93 K/uL (1.40-6.50); Neutrophils % (auto) 54.2 %
[2024-02-26] MEDS: DIATRIZOATE MEGLUMINE 30% 100ML VIAL INSTIL ONE (09:04)
--- NOTE | 2024-02-26 09:20 | Operative Report ---
PG Post Operative Report Pre & Post Diagnosis Operation Date: 02/26/24 08:20 Pre-Op Diagnosis: Right obstructing ureteral stone, Hydronephrosis Post-Op Diagnosis: Right obstructing ureteral stone, Hydronephrosis I identified the patient and participated in the time-out.: Yes Procedure Operation Date: 02/26/24 08:20 Actual Procedures p Cystoscopy with meatal dilation. Right ureteroscopy, basket stone extraction, Right ureteral dilation, Right ureteral Stent Placement(Right) - Jeffery Stoddard DO Surgeon Jeffery Stoddard, II, DO Exhibition Designer None Estimated Blood Loss 1 Findings Consistent with Post-Op Diagnosis Significant meatal narrowing with mild bleeding after dilation. 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 Stone displaced and basked for removal. Specimens Stone Right Ureter Drains 6 Fr Multilength Anesthesia Type General Complications none Disposition Disposition: Recovery Room Indications Patient with bothersome stones. Risks and benefits discussed at length. Description of Procedure Patient was consented and brought back to the operating room. Patient was placed under anesthesia in the supine position and moved to the dorsal lithotomy position. Patient was prepped and draped in the regular sterile fashion. A time out was completed. A 30degree Cystoscope was placed into the urethra. A meatal stricture was noted. The scope had difficulty bypassing. The meatus was dilated and the scope was able to advance. The scope then entered into the bladder and the entire bladder was examined. The UO's were identified. The UO was cannulized with a catheter but had difficulty advancing. A wire was then placed which had to be manipulated in order to advance past where the stone was visible on the fluoroscopy. A retrograde pyelogram was completed. A significant narrowing was noted at the UVJ with a stone that appeared to be impacted just proximal to the narrowing. The Rigid ureteroscope was taken into the ureter. The stone was identified. The UVJ/UO had to be dilated. The scope was able to advance after displacing the stone back into the more proximal section of the ureter. The stone was found to be somewhat thin but very long. It was able to be straightened. A basket was selected and utilizing the basket the stone was grasped to allow for easy removal. The stone was then extracted monitoring the whole time. The stone was sent for pathologic analysis. The scope was replaced and the entire ureter up to the proximal ureter was e xamined. There was significant hydroureter down to the area where the stone had impacted into the wall. The area which was dilated had no major injuries or signs or concern. The scope was slowly removed The entire area was once again examined. No residual large fragments or areas of concern were noted. The scope was slowly removed with the wire left in place. Contrast was placed through the scope for a pyelogram to assist in stent placement. The entire ureter was examined as the scope was slowly removed. No obstructions or other areas of concern were noted. With the wire in place, a 6 Fr Double J stent was placed. It was confirmed with fluoroscopy. With the stent in place, the bladder was emptied. The scope was removed. The patient was cleaned, aroused from anesthesia, and transferred to the pacu in stable condition having tolerated the procedure well with no complications. I was present and participated in all aspects of the procedure. The patient will be monitored in the PACU until transferred. Will plan to remove stent in approximately a week. Patient will be transferred back to the floor where he will be monitored and can be likely discharged when he stabilizes I attest to the content of the Intraoperative Record and any orders documented therein. Any exceptions are noted below.
[2024-02-26] MEDS: ceFAZolin 3000MG 3,000 MG/72.5 ML BAG IV SCH (09:51)
--- NOTE | 2024-02-26 10:06 | Anesthesiology Progress Note ---
Date of Service February 26, 2024 Anesthesia Post Procedure Vital Signs Vital Signs: Temp Pulse Pulse Resp BP Pulse Ox O2 Del Method 02/26/24 09:35 36.4 C L 60 14 121/78 96 Room Air 02/26/24 09:25 69 14 118/79 99 Oxymask 02/26/24 09:15 36 C L 75 12 127/78 99 Oxymask 02/26/24 07:12 36.6 C 51 L 16 105/70 92 Room Air 02/25/24 19:50 36.5 C 84 18 134/93 96 Room Air O2 Flow Rate 02/26/24 09:35 02/26/24 09:25 3 02/26/24 09:15 6 02/26/24 07:12 02/25/24 19:50 Transfer of Care Handoff Completed per policy Notes Mental Status: alert / awake / arousable Patient Amnestic to Procedure: Yes Nausea / Vomiting: adequately controlled Pain: adequately controlled Airway Patency, RR, SpO2: stable & adequate BP & HR: stable & adequate Hydration State: stable & adequate Anesthetic Complications: no major complications apparent
--- NOTE | 2024-02-26 11:13 | Fluoroscopy Report ---
FL retrograde includes kub CLINICAL HISTORY: RT STENT TECHNIQUE: 3 views were obtained with the C-arm in the OR with the above procedure. Total fluoroscopy time was 68.4 seconds. Radiation dose was 29.60 mGy. Comparison: Comparison is made to abdomen radiographs 02/25/2024 FINDINGS/IMPRESSION: Intraoperative images were obtained of right cystogram with stent placement. In the final images, the stent is in satisfactory position. Please correlate with intraoperative fluoroscopy and operative report. ACT 112: Negative or not required by law. Electronically signed by: Flip Vaz M.D. 02/26/2024 11:12 AM
[2024-02-26] MEDS: ONDANSETRON INJ 2 MG/ML 2 ML VIAL IV PRN (11:52)
[2024-02-26] MEDS: ACETAMINOPHEN 325 MG TAB PO PRN (14:34)
[2024-02-26] MEDS: PHENAZOPYRIDINE HCL 200 MG TAB PO STA (16:37)
[2024-02-26] MEDS: oxyBUTYnin chloride 5 MG TAB PO STA (16:37)
--- NOTE | 2024-02-26 19:09 | Discharge Summary ---
Date of Service February 26, 2024 Admission HPI Per Admitting Provider Andrew is a 54-year-old male with no prior past medical history who presents for right distal ureteral calculus with associated hydronephrosis. Was seen at [facility] previously and discharged, presented back to the ER [place] due to persistent pain. Creatinine elevated, no leukocytosis, no associated UTI on ER assessment. Urology was consulted, patient anticipated for surgical intervention 02/24. Denies past medical history of problems other than kidney stones and well-controlled anxiety not currently on medications. Urology was consulted for management and admission, recommended for operative intervention with medical admission overnight. Seen at the bedside. Reports that he has had pain for about a week, was seen at OSH on Wednesday and was told he is a 7 mm stone. Was discharged home on Flomax bu t pain is continued to worsen, presented to the ER for continued pain. No fever, chills, sweats. No pain when peeing. Pain is mostly in his abdomen and flank on the right side. This is intermittent in waves, up to an 8/10 with spasm and then "okay "at rest. Pain adequately controlled at time of hospitalist assessment. Endorses a history of anxiety for which he was previously on medications but currently does well without these and has been on no medications in the previous 6 weeks. No SI/HI. Denies any other prescription medications. Denies any other history of medical problems. Denies chest pain/chest pressure, denies anginal symptoms and is generally active walking around. No history of DM/insulin use. No history of strokes. Uses chew tobacco 1 can last a few days. No regular alcohol use. Some medical marijuana use for anxiety intermittently, none recently. Full code. No medication allergies. Discharge Data Allergies Allergy/AdvReac Type Severity Reaction Status Date / Time No Known Allergies Allergy Unverified 02/24/24 15:44 Consultations 02/24/24 15:21 ED Decision to Admit Stat 02/24/24 19:52 Consult Urology Routine Procedures Performed Operation Date: 02/26/24 08:20 Actual Procedures p Cystoscopy, Right ureteroscopy, basket stone extraction, Right ureteral Stent Placement(Right) - Jeffery Stoddard, DO Ordered Studies 02/24/24 12:56 US renal/blad retro comp Stat 02/26/24 07:30 FL retrograde includes kub Routine Hospital Course (1) Hydronephrosis, right: Obstructing right distal ureteral calculus, hydronephrosis with associated ROLANDO - UA without signs of infection No baseline creatinine available, reportedly normal Renal ultrasound shows mild right hydroureteronephrosis, patient with known 7 m distal radial calculus previously demonstrated [facility] ER this week Urology consulted. - unable to have intervention 02/24 d/t downtime - patient has started passing sediment - check KUB, will keep NPO at midnight for possible intervention - Continue flomax Pain control: dilaudid and tylenol (2) ROLANDO (acute kidney injury): Creatinine 1.65 on admission. No baseline to review. No associated volume overload or hyperkalemia Creatinine now 1.33 ROLANDO resolved Plan DVT prophylaxis: Low risk, SCDs Dispo: continued inpatient stay, NPO at midnight for possible intervention discussed case with Dr. Stoddard, urology Discharge Plan Discharge Items Patient Disposition: Home - Self-Care Reason For Visit: right-sided kidney stone Discharge Diagnosis: 1. right-sided kidney stone -- removal by Dr Jeffery Stoddard 2. placement of right-sided ureteral stent -- by Dr Stoddard 3. urethral stenosis (narrowing) -- dilation by Dr Stoddard Condition on Discharge: Good Activity: As commented below Activity Comment: light activities only at this time Lifting Comment: No more than 20 pounds Sexual Activity: Wait until after follow-up appointment Exercise/Sports: Wait until after follow-up appointment Driving/Machine Use: NO DRIVING if taking oxycodone pain medicine Non-emergency contact: Primary Care Provider and Urologist Call non-emergency contact if: you have any medication questions, your symptoms worsen, your pain is not controlled, your pain is worsening, your pain is unusual for you, your pain is concerning for you and you have a fever Follow-up/Referrals: Jeffery Stoddard DO [Physician] - (1 week for stent management ) Belkis Dowell PA-C [Primary Care Provider] - (1-2 weeks) Diet: Regular Addtl Attending Provider Instructions: Mr Kohler, Bruno were hospitalized due to a right-sided kidney stone. Dr Jeffery Stoddard took you to the operating room on 02/26/24. During your procedure the urethral tract was dilated due to a narrowing, the kidney stone was removed, and a stent was placed in the right ureter. See handout on kidney stones and stents. The majority of people who have a ureteral stent have some symptoms and discomfort related to their stent. It is common to see some blood in the urine after the type of procedure you had today. This may come/go for a few days. You may experience some pain due to the stent itself. You may have bladder pain and/or bladder spasm as well as burning with ur ination. Again see the handout on ureteral stents. Be sure to stay well-hydrated over the next few days as you recover from your procedure. Water, Crystal Lite, Lemonade, etc are great beverages for those with kidney stones. Take it easy the next few days - avoid heavy exertional activities. Other recommendations - 1. 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 2. for bladder pain/spasm - oxybutinin 5mg every 12 hours as needed 3. for urinary burning/pain - phenazopyridine 100mg every 8 hours as needed * this medication will make your urine an orange color * it can also cause your tears to be orange * this is a normal side effect 4. for constipation - you can take 1 or more of the following [id number]-oapyzki medicines to help with your bowels - * miralax 1 serving daily * senna 2 tablets daily 5. continue your previously prescribed tamsulosin medicine 0.4mg daily Follow-up - see Dr Stoddard within 1 week for stent management Return to [facility] if - * you have fever over 100 degrees * you cannot pass your urine * you have abdominal pain, flank pain, or back pain that is not being controlled by your pain medicines * you see large amounts of blood in your urine (minor bleeding in the urine is common after your stent procedure but a large amount is not) * any other concerns It was our pleasure to care for you! Pending Studies at Discharge: No Stand-Alone Forms: My [facility], Work/School Release, Smoking Cessation Medications and DC Order Prescriptions: New oxycodone 5 mg Tablet 5 mg PO Q6H PRN (Reason: pain) Qty: 15 0RF oxybutynin chloride 5 mg tablet 5 mg PO Q12H PRN (Reason: bladder spasms/bladder pain) Qty: 14 0RF phenazopyridine [Pyridium] 100 mg tablet 100 mg PO Q8H PRN (Reason: urinary pain/burning) Qty: 10 0RF Continued tamsulosin 0.4 mg capsule 0.4 mg PO DAILY Discontinued ketorolac 10 mg tablet 10 mg PO Q6H PRN (Reason: Pain) Discharge Orders: Discharge Order (Routine); Ordered 02/26/24 Ordered By: Gabo Fried/Other Patient Handouts: Having a Ureteral Stent, Understanding Kidney Stones Admission Data Admit Date/Time: 02/24/24 17:08 Attending Provider: Gabo Ramirez Admit Provider: Pablo Singh Primary Care Provider: Belkis Dowell Other Providers: Pablo Singh; Paul Hodge Other Interventions: Discharge Summary Assessment (RN) Last Done: 02/26/24 17:17 Coding Diagnoses Hydronephrosis, right N13.30 ROLANDO (acute kidney injury) N17.9
[2024-02-26] MEDS: oxyCODONE IR HOME PACK PO ONE (19:21)
== END 2024-02-26 19:24 | disposition home or self-care (01) | DRG 661 ==
LOC: ED 12:32 → MERGE 17:08 → SUATTDRO 17:08 → 3W 17:08